=== PATIENT | female | born 1955 | race Caucasian/White ===

== ENCOUNTER 2019-01-05 07:28 | Day surgery (SDC) | payer OTHER ==
[~2019-01-05] VITALS: Ht 160 cm; Wt 84.5 kg
[~2019-01-05 07:28] MED LIST: 0.9% SODIUM CHLORIDE 10 ML SYRINGE IVP PRN; AMLO-512 PO; ASPI81 PO; EXCEES PO; FURO20 PO; HYDR25TA PO; LEVO25TA9 PO; LOSA50TA64 PO; METO-558 PO; METOPROLOL TARTRATE 50 MG TABLET PO PRN; NITR2.5 PO; PRAV20TA4 PO
[2019-01-05 08:33] LABS: ANION GAP 9 mmol/L (8-16); CALCIUM, TOTAL 9.5 mg/dL (8.8-10.5); CARBON DIOXIDE 32 mmol/L (22-29); CHLORIDE 100 mmol/L (98-107); CREATININE 0.62 mg/dL (0.60-1.30); GLOMERULAR FILTR. RATE CALC > 60 mL/min (>60); GLUCOSE,RANDOM 113 mg/dL (70-110); POTASSIUM 3.2 mmol/L (3.5-5.1); SODIUM SERUM 141 mmol/L (136-145); UREA NITROGEN, BLOOD 9 mg/dL (7-18)
[2019-01-05] MEDS ORDERED: METOPROLOL TARTRATE 50 MG TABLET ONE (08:48)
[2019-01-05] MEDS ORDERED: METOPROLOL TARTRATE 5 MG/5 ML VIAL ONE ×2 (09:09→09:33)
[2019-01-05] MEDS ORDERED: METOPROLOL TARTRATE 5 MG/5 ML VIAL IVP ONE ×2 (09:15→09:45)
[2019-01-05] MEDS ORDERED: NITROGLYCERIN 400 MCG/SUBLINGUAL SPRAY 4.9 GM BOTTLE SL ONE ×2 (09:33→09:48)
[2019-01-05] MEDS ORDERED: IOVERSOL 350 MG/ML 150 ML VIAL ONE (09:33)
[2019-01-05] MEDS ORDERED: SODIUM CHLORIDE 0.9% 100 ML ONE (09:33)
[2019-01-05] MEDS ORDERED: CHOL50004 PO (09:39)
[2019-01-05] MEDS ORDERED: RANO500T3 PO (09:40)
== END 2019-01-05 10:40 | disposition home or self-care (01) ==
LOC: SURGERY 07:28 → EDSTATUS 09:00 → SURGERY 10:40
PROVIDERS: ATTEND Internal Medicine Cardiovascular Disease
DX: I25.10 Atherosclerotic heart disease of native coronary artery without angina pectoris (principal); I10 Essential (primary) hypertension
CPT/HCPCS: 36415; 75574; 80048; 93005; J3490; J7050; Q9967

== ENCOUNTER 2019-02-06 08:20 | Emergency (ER) | payer OTHER ==
[~2019-02-06] VITALS: Ht 160 cm; Wt 86.4 kg
[~2019-02-06 08:20] MED LIST changes: -0.9% SODIUM CHLORIDE 10 ML SYRINGE IVP PRN; -AMLO-512 PO; +AMLO10TA7 PO; +CHOL50004 PO; -EXCEES PO; -FURO20 PO; -LOSA50TA64 PO; -METOPROLOL TARTRATE 50 MG TABLET PO PRN; -NITR2.5 PO; +RANO500T3 PO
[2019-02-06 10:50] VITALS: BP 128/69
== END 2019-02-06 10:58 | disposition home or self-care (01) ==
LOC: EMS 08:20
DX: S82.62XA Displaced fracture of lateral malleolus of left fibula, initial encounter for closed fracture (principal); S92.352A Displaced fracture of fifth metatarsal bone, left foot, initial encounter for closed fracture; I11.0 Hypertensive heart disease with heart failure; I50.9 Heart failure, unspecified; E78.00 Pure hypercholesterolemia, unspecified; E03.9 Hypothyroidism, unspecified; Z90.710 Acquired absence of both cervix and uterus; Z79.82 Long term (current) use of aspirin; W22.8XXA Striking against or struck by other objects, initial encounter; Y93.89 Activity, other specified; Y92.89 Other specified places as the place of occurrence of the external cause; Y99.8 Other external cause status
CPT/HCPCS: 29515